=== PATIENT | female | born 1990 | race Caucasian/White ===

== ENCOUNTER 2017-10-02 09:09 | Emergency (ER) | payer OTHER ==
[2017-10-02] MEDS ORDERED: ONDANSETRON 4 MG TAB PO (10:30)
[2017-10-02] MEDS: ONDANSETRON 4 MG INJ IM (10:47)
[2017-10-02] MEDS: IBUPROFEN 800 MG TAB PO (10:47)
== END 2017-10-02 11:08 | disposition home or self-care (01) ==
LOC: FTE 09:09
DX: R10.84 Generalized abdominal pain (principal); R09.89 Other specified symptoms and signs involving the circulatory and respiratory systems; R11.2 Nausea with vomiting, unspecified; Z85.42 Personal history of malignant neoplasm of other parts of uterus
CPT/HCPCS: 96372; 99284-25

== ENCOUNTER 2017-11-08 02:19 | Emergency (ER) | payer OTHER | END 2017-11-08 05:22 | disposition home or self-care (01) | LOC: FTE 02:19 | DX: G89.29 Other chronic pain (principal); N93.9 Abnormal uterine and vaginal bleeding, unspecified; Z76.5 Malingerer [conscious simulation]; Z85.038 Personal history of other malignant neoplasm of large intestine | CPT/HCPCS: 99282; Z7502 ==

== ENCOUNTER 2018-07-09 08:23 | Emergency (ER) | payer OTHER ==
[2018-07-09] MEDS: KETAMINE (50 MG/ML) 10 ML VIAL IV (09:56)
[2018-07-09] MEDS: ONDANSETRON 4 MG INJ IV (09:56)
[2018-07-09] MEDS: SOD CHLORIDE 0.9% 1,000 ML IV (09:56)
[2018-07-09] MEDS ORDERED: LORAZEPAM 2 MG INJ IV (11:30)
[2018-07-09] MEDS: HYDROmorphONE 0.5 MG/0.5 ML SYG IV (11:32)
== END 2018-07-09 11:56 | disposition home or self-care (01) ==
LOC: E/R 08:23
DX: C19 Malignant neoplasm of rectosigmoid junction (principal); R10.84 Generalized abdominal pain
CPT/HCPCS: 96374; 96375; 99284-25

== ENCOUNTER 2018-08-04 20:01 | Emergency (ER) | payer OTHER ==
[2018-08-04 20:28] LABS: URINE PH (Dip) POC 8.5 (5.0-8.5)
[2018-08-04 20:28] LABS: URINE BLOOD (Dip) POC 2+ (NEGATIVE); URINE GLUCOSE (Dip) POC Negative (NEGATIVE); URINE KETONES (Dip) POC Negative (NEGATIVE); URINE LEUKOCYTE EST (Dip) POC 1+ (NEGATIVE); URINE NITRITE (Dip) POC Negative (NEGATIVE); URINE TOTAL PROTEIN POC 2+ (NEGATIVE)
[2018-08-04 21:02] LABS: ADD MAN DIFF? NO
[2018-08-04] MEDS: SOD CHLORIDE 0.9% 1,000 ML IV (21:02)
[2018-08-04] MEDS: ONDANSETRON 4 MG INJ IV ×4 (21:02→23:34)
[2018-08-04] MEDS: HYDROmorphONE 1 MG/ML SYG IV ×4 (21:02→23:34)
[2018-08-04 21:09] LABS: BASOPHILS % 0.4 % (0.0-2.0); EOSINOPHILS # 0.3 10^3/ul (0.0-0.5); EOSINOPHILS % 3.6 % (0.0-7.0); HEMATOCRIT 42.2 % (37.0-47.0); HEMOGLOBIN 13.5 g/dl (12.0-16.0); LYMPHOCYTES # 1.3 10^3/ul (0.8-2.9); LYMPHOCYTES % 16.6 % (15.0-51.0); MEAN CORPUSCULAR HEMOGLOBIN 27.2 pg (29.0-33.0); MEAN CORPUSCULAR VOLUME 84.9 fl (82.0-101.0); MEAN PLATELET VOLUME 10.1 fl (7.4-10.4); MONOCYTE # 0.3 10^3/ul (0.3-0.9); MONOCYTES % 4.1 % (0.0-11.0); NEUTROPHIL # 5.7 10^3/ul (1.6-7.5); NEUTROPHILS % 74.6 % (39.0-77.0); PLATELET COUNT 286 10^3/UL (140-415); RED BLOOD COUNT 4.97 10^6/ul (4.20-5.40); RED CELL DISTRIBUTION WIDTH 13.5 % (11.5-14.5)
[2018-08-04 21:09] LABS: WHITE BLOOD COUNT 7.6 10^3/ul (4.8-10.8)
[2018-08-04 21:20] LABS: ALANINE AMINOTRANSFERASE 40 IU/L (13-69); ALBUMIN 4.6 g/dl (3.3-4.9); ALBUMIN/GLOBULIN RATIO 1.21; ALKALINE PHOSPHATASE 89 IU/L (42-121); ANION GAP 13 (5-13); ASPARTATE AMINO TRANSFERASE 43 IU/L (15-46); BILIRUBIN,INDIRECT 0.2 mg/dl (0-1.1); BILIRUBIN,TOTAL 0.2 mg/dl (0.2-1.3); BLOOD UREA NITROGEN 8 mg/dl (7-20); CALCIUM 10.2 mg/dl (8.4-10.2); CARBON DIOXIDE 25 mmol/L (21-31); CHLORIDE 104 mmol/L (97-110); CREATININE 0.53 mg/dl (0.44-1.00); Estimated GFR > 60 mL/min (>60); GLUCOSE 108 mg/dl (70-220); LIPASE 60 U/L (23-300); POTASSIUM 4.2 mmol/L (3.5-5.1); SODIUM 142 mmol/L (135-144); TOTAL PROTEIN 8.4 g/dl (6.1-8.1)
[2018-08-04] MEDS: SOD CHLORIDE 0.9% 100 ML (22:24)
[2018-08-04] MEDS: IOHEXOL 300MG/ML 150 ML BTL (22:24)
== END 2018-08-05 00:09 | disposition home or self-care (01) ==
LOC: E/R 08-05 00:09
DX: R10.30 Lower abdominal pain, unspecified (principal); Z85.038 Personal history of other malignant neoplasm of large intestine
CPT/HCPCS: 36415; 74177; 80053; 81003; 81025; 83690; 85025; 96361; 96374; 96375; 96376; 99285-25

== ENCOUNTER 2018-09-03 08:25 | Emergency (ER) | payer OTHER ==
[2018-09-03] MEDS: KETOROLAC 60 MG INJ IM (09:27)
[2018-09-03] MEDS ORDERED: CYCLOBENZAPRINE 10 MG TAB PO (09:30)
[2018-09-03] MEDS: morphine 10 MG INJ IM (09:47)
== END 2018-09-03 10:20 | disposition home or self-care (01) ==
LOC: FTE 08:25
DX: M25.561 Pain in right knee (principal); M25.562 Pain in left knee; Z85.038 Personal history of other malignant neoplasm of large intestine; Z85.44 Personal history of malignant neoplasm of other female genital organs
CPT/HCPCS: 81025; 96372; 99284-25

== ENCOUNTER 2018-09-16 08:36 | Emergency (ER) | payer OTHER ==
[2018-09-16] MEDS ORDERED: ONDANSETRON (ODT) 4 MG TAB ODT (08:48)
[2018-09-16] MEDS ORDERED: KETOROLAC 30 MG INJ IM (08:48)
== END 2018-09-16 11:28 | disposition left against medical advice (07) ==
LOC: E/R 08:36
DX: R10.84 Generalized abdominal pain (principal); Z85.038 Personal history of other malignant neoplasm of large intestine; Z85.44 Personal history of malignant neoplasm of other female genital organs
CPT/HCPCS: 99282; Z7502

== ENCOUNTER 2019-02-18 07:26 | Emergency (ER) | payer OTHER ==
[2019-02-18] MEDS: KETOROLAC 30 MG INJ IM (08:06)
== END 2019-02-18 08:11 | disposition home or self-care (01) ==
LOC: FTE 07:26
DX: R10.84 Generalized abdominal pain (principal); Z85.038 Personal history of other malignant neoplasm of large intestine
CPT/HCPCS: 96372; 99284-25